=== PATIENT | female | born 1970 | race Hispanic/Latino ===

== ENCOUNTER 2020-03-06 07:00 | Day surgery (SDC) | payer BC, OTHER ==
[2020-03-04 15:53] LABS: CREATININE 0.8 mg/dL (0.5-1.5)
[2020-03-06] VITALS (13 sets, daily range): BP systolic 103–134; BP diastolic 67–95
[~2020-03-06] VITALS: Ht 162.6 cm; Wt 66.4 kg
[~2020-03-06 07:00] MED LIST: MELA10TA2 PO; METF750T46 PO; VENL75 PO
[2020-03-06] MEDS ORDERED: SODIUM CHLORIDE 0.9% 1000ML 1,000 ML IV ONE (07:06)
[2020-03-06] MEDS ORDERED: IOHEXOL-350 50ML VIAL IV ONE (07:18)
[2020-03-06] MEDS: CEFTRIAXONE SODIUM 1 GM IVP ONE ×2 (07:44→09:50)
[2020-03-06] MEDS ORDERED: SPIR25TA6 PO (07:51)
[2020-03-06] MEDS ORDERED: [UNRECOGNIZED DRUG - CODE] PO (07:51)
[2020-03-06] MEDS ORDERED: CALCIUM PO (07:51)
[2020-03-06] MEDS ORDERED: LINA145C PO (07:51)
[2020-03-06] MEDS ORDERED: OMEG1CAP67 PO (07:51)
[2020-03-06] MEDS ORDERED: BIOT10005 PO (07:51)
[2020-03-06] MEDS ORDERED: TAMS-1 PO (07:51)
[2020-03-06] MEDS ORDERED: MULT-1367 PO (07:51)
[2020-03-06] MEDS ORDERED: CETI-89 PO (07:51)
[2020-03-06] MEDS ORDERED: SCOPOLAMINE HYDROBROMIDE 1 EACH ADH..PATCH TD ONE (09:42)
[2020-03-06] MEDS ORDERED: FENTANYL CITRATE PF 50 MCG/1 ML 2ML VIAL ONE (09:44)
[2020-03-06] MEDS ORDERED: MIDAZOLAM HCL 1 MG/ML 2ML VIAL ONE (09:44)
[2020-03-06] MEDS ORDERED: ONDANSETRON HCL 4 MG/2 ML VIAL ONE (09:44)
[2020-03-06] MEDS ORDERED: DEXAMETHASONE SOD PHOSPHATE 10MG/ML 1ML VIAL ONE (09:44)
[2020-03-06] MEDS ORDERED: LIDOCAINE PF 2% 5ML ABBOJECT ONE (09:44)
[2020-03-06] MEDS ORDERED: PROPOFOL 10 MG/ML 20ML VIAL IV ONE (09:44)
[2020-03-06] MEDS ORDERED: ROCURONIUM 10MG/1ML SYR 10 MG/ML ML ONE (09:46)
[2020-03-06] MEDS ORDERED: NEOSTIGMINE 5MG/5ML SYR IV ONE (10:16)
[2020-03-06] MEDS ORDERED: GLYCOPYRROLATE 1 MG/5 ML SYRINGE ONE (10:16)
--- NOTE | 2020-03-06 11:30 | NUR ---
POST OP RECEIVED PT FROM DYAN [employer] NURSE. PT IN NO DISTRESS. WILL CONTINUE TO MONITOR PT
[2020-03-06] MEDS ORDERED: PHENAZOPYRIDINE HCL 200 MG TABLET PO SCH (12:00)
--- NOTE | 2020-03-06 12:10 | NUR ---
DISCHARGE PT TAKEN OUT VIA W/C IN NO DISTRESS BY HIEN NAVA. SPOUSE GIVEN DISCHARGE INSTRUCTIONS AND VOICED UNDERSTANDING. SCRIPT ALSO GIVEN AND HANDOUTS
== END 2020-03-06 12:10 | disposition home or self-care (01) ==
LOC: DAH 07:00
PROVIDERS: ATTEND Urology
DX: N13.2 Hydronephrosis with renal and ureteral calculous obstruction (principal); E11.9 Type 2 diabetes mellitus without complications; K58.9 Irritable bowel syndrome, unspecified; Z79.84 Long term (current) use of oral hypoglycemic drugs; Z79.899 Other long term (current) drug therapy
CPT/HCPCS: 36415; 52351; 74420; 80048; 82948 ×2; A4215; A4221; A4222; A4223; A4344; A4510; A4600; A4663; C1758; C1769; J0696; J1100; J2001; J2250; J2405; J2704; J2710; J3010; J3490; J7030 ×2; Q9967